=== PATIENT | male | born 2000 | race Caucasian/White ===

== ENCOUNTER 2018-04-13 00:34 | Emergency (ER) | payer OTHER ==
[2018-04-13] MEDS: KETOROLAC TROMETHAMINE 10 MG TAB PO (01:34)
== END 2018-04-13 01:37 | disposition home or self-care (01) ==
LOC: M ED 00:34
DX: S76.012A Strain of muscle, fascia and tendon of left hip, initial encounter (principal); W00.0XXA Fall on same level due to ice and snow, initial encounter; Y92.410 Unspecified street and highway as the place of occurrence of the external cause
CPT/HCPCS: 73502

== ENCOUNTER 2018-07-13 09:19 | Emergency (ER) | payer OTHER ==
[~2018-07-13] VITALS: Ht 162.6 cm; Wt 59.1 kg
[~2018-07-13 09:19] MED LIST: KETO10TAB PO
[2018-07-13 09:20] VITALS: BP 130/64
[2018-07-13] MEDS ORDERED: NAPR-50 PO (10:02)
[2018-07-13] MEDS ORDERED: VOLT1GEL15 TOP (10:03)
== END 2018-07-13 10:15 | disposition home or self-care (01) ==
LOC: M ED 09:19
DX: M76.892 Other specified enthesopathies of left lower limb, excluding foot (principal)

== ENCOUNTER 2019-05-10 08:26 | Emergency (ER) | payer OTHER ==
[~2019-05-10] VITALS: Ht 162.6 cm; Wt 58.1 kg
[~2019-05-10 08:26] MED LIST changes: +NAPR-837 PO; +VOLT1GEL15 TOP
--- NOTE | 2019-05-10 09:30 | REP ---
High-resolution scrotal sonography: History: Left testicular pain. Findings: High-resolution bilateral sonography shows no evidence of intratesticular mass lesion on either side. Epididymi are unremarkable. There is no evidence of hydrocele or hernia. Right testis measures 4.8 x 2.0-0.5 cm. Left testicular dimensions are 4.3 x 2.1 x 2.9 cm. No scrotal wall edema is appreciated. Doppler flow is present in both testes. Resistive indices are 0.63 and 0.53 on the right and left respectively. Impression: No morphologic abnormality. Doppler flow present bilaterally. Electronically Signed by Julius Mccullough MD 05/10/2019 11:05 A
[2019-05-10] MEDS ORDERED: cefTRIAXone SOD 250 MG VIAL (J0696) IM ONE (11:15)
[2019-05-10] MEDS ORDERED: LIDOCAINE 1% SDV 5 ML VIAL DILUENT ONE (11:15)
[2019-05-10] MEDS ORDERED: DOXY100C37 PO (11:27)
[2019-05-10 11:38] VITALS: BP 130/77
[2019-05-10 12:28] LABS: CHLAMYDIA DNA AMPLIFICATION NEGATIVE (NEGATIVE); GC DNA AMPLIFICATION NEGATIVE (NEGATIVE)
== END 2019-05-10 11:49 | disposition home or self-care (01) ==
LOC: M ED 08:26
DX: N45.1 Epididymitis (principal)
CPT/HCPCS: 76870; 81001; 87491; 87591; 93976; 96372; 99283; J0696

== ENCOUNTER 2020-03-01 10:57 | Day surgery (SDC) | payer OTHER ==
[~2020-03-01] VITALS: Ht 162.6 cm; Wt 63.5 kg
[~2020-03-01 10:57] MED LIST changes: +DOXY100C37 PO; +NS 1,000 ML IV ONE; +PANT40TA29 PO
--- NOTE | 2020-03-01 14:04 | ROOR ---
Patient Name: Jaylan Hernandez Procedure Date: 03/01/2020 1:49 PM Date of : 2000 Age: 19 Room: [facility] Gender: Male Note Status: Finalized Procedure: Upper Endoscopy + Biopsies Indications: Heartburn, Nausea with vomiting Providers: Shailesh Pena MD Referring MD: TANMAY LOTT MD Requesting Provider: Medicines: Monitored Anesthesia Care Complications: No immediate complications. Procedure: Pre-Anesthesia Assessment: - The heart rate, respiratory rate, oxygen saturations, blood pressure, adequacy of pulmonary ventilation, and response to care were monitored throughout the procedure. The Endoscope was introduced through the mouth, and advanced to the second part of duodenum. The upper GI endoscopy was accomplished without difficulty. The patient tolerated the procedure well. Findings: The Z-line was variable and was found 40 cm from the incisors. No other significant abnormalities were identified in a careful examination of the stomach. Biopsies were taken with a cold forceps in the gastric antrum for Helicobacter pylori testing. The exam of the duodenum was otherwise normal. Impression: - Z-line variable, 40 cm from the incisors. - Biopsies were taken with a cold forceps for Helicobacter pylori testing. - The examination was otherwise normal. Recommendation: - Patient has a contact number available for emergencies. The signs and symptoms of potential delayed complications were discussed with the patient. Return to normal activities tomorrow. Written discharge instructions were provided to the patient. - High fiber diet. - Discharge patient to home. - Follow an antireflux regimen. - Continue present medications. - Await pathology results. - Telephone GI clinic for pathology results in 1 week. - Return to referring physician. - The findings and recommendations were discussed with the patient. Shailesh Pena MD Shailesh Pena MD 03/01/2020 2:02:57 PM Electronically signed by Shailesh Pena MD Number of Addenda: 0 Note Initiated On: 03/01/2020 1:49 PM Estimated Blood Loss: Estimated blood loss: none.
[2020-03-01] MEDS ORDERED: propofoL 200 MG/20 ML VIAL As Ordered ONE (14:08)
[2020-03-01] MEDS ORDERED: LIDOCAINE 2% 100MG/5ML SDV (FOR ANES.) As Ordered ONE (14:08)
[2020-03-01 14:25] VITALS: BP 118/61
== END 2020-03-01 14:50 | disposition home or self-care (01) ==
LOC: M OPP 10:57
PROVIDERS: ATTEND Internal Medicine Gastroenterology
DX: K22.8 Other specified diseases of esophagus (principal); K29.71 Gastritis, unspecified, with bleeding; R12 Heartburn; R11.2 Nausea with vomiting, unspecified; G47.30 Sleep apnea, unspecified; Z79.899 Other long term (current) drug therapy

== ENCOUNTER 2020-09-01 07:05 | Emergency (ER) | payer OTHER ==
[~2020-09-01] VITALS: Ht 165.1 cm; Wt 68.9 kg
[~2020-09-01 07:05] MED LIST changes: -NS 1,000 ML IV ONE
[2020-09-01 08:01] LABS: APPEARANCE, URINE CLEAR (CLEAR); BACTERIA, URINE AUTO NEGATIVE (NEGATIVE); BILIRUBIN, URINE AUTO NEGATIVE (NEGATIVE); BLOOD, URINE BLOOD NEGATIVE (NEGATIVE); COLOR, URINE YELLOW (YELLOW); GLUCOSE, URINE (UA) AUTO NEGATIVE (NEGATIVE); KETONE, URINE AUTO NEGATIVE (NEGATIVE); LEUKOCYTE ESTERASE, URINE AUTO NEGATIVE (NEGATIVE); NITRITE, URINE AUTO NEGATIVE (NEGATIVE); PROTEIN, URINE AUTO NEGATIVE (NEGATIVE); RBC, URINE AUTO 2 /HPF (0-3); SQUAMOUS EPITHELIAL CELL UR AU 0 /HPF (0-6); UROBILINOGEN, URINE AUTO 0.2 mg/dL (0.0-2.0); WBC, URINE AUTO 1 /HPF (0-3)
--- NOTE | 2020-09-01 08:07 | REP ---
INDICATION: blunt trauma. COMPARISON: None. TECHNIQUE: Four views of the lumbar spine are provided. FINDINGS: Lumbar vertebral body heights are preserved. Alignment is normal. No fracture or collapse is seen. Disc spaces are maintained. Pedicles and posterior elements are intact. There is no evidence of spondylolysis or spondylolisthesis. Sacrum and SI joints are unremarkable. Psoas margins are symmetric. Visualized bowel gas pattern is normal. IMPRESSION: Negative lumbar spine radiographs. <Electronically signed by Major Mccullough > 09/01/20 0141
--- NOTE | 2020-09-01 08:08 | REP ---
INDICATION: blunt trauma. COMPARISON: None. TECHNIQUE: Three views. FINDINGS: Thoracic vertebral body heights are preserved. Alignment is normal. No fracture or collapse is seen. Pedicles and posterior elements are intact. No paravertebral soft tissue mass or swelling is seen. Swimmer's lateral view shows no additional finding. Disc spaces are maintained. IMPRESSION: Negative views of the thoracic spine. <Electronically signed by Major Mccullough > 09/01/20 0838
[2020-09-01 08:25] VITALS: BP 130/71
== END 2020-09-01 08:44 | disposition home or self-care (01) ==
LOC: M ED 07:05
DX: S20.229A Contusion of unspecified back wall of thorax, initial encounter (principal); W22.8XXA Striking against or struck by other objects, initial encounter; Y92.9 Unspecified place or not applicable; Y93.9 Activity, unspecified; Y99.1 Military activity

== ENCOUNTER 2020-09-06 22:41 | Emergency (ER) | payer OTHER ==
[~2020-09-06] VITALS: Ht 165.1 cm; Wt 66.8 kg
[2020-09-06] MEDS ORDERED: IBUP1TAB5 PO (22:50)
[2020-09-07] MEDS ORDERED: ISOVUE-370 76% 100ML VIAL As Ordered ONE (03:48)
[2020-09-07 03:52] LABS: BASO % 0.6 % (0.0-1.0); EOS # 0.1 10^3/uL (0.0-0.5); EOS % 1.4 % (0.0-3.0); HEMATOCRIT 43.2 % (42.0-52.0); HEMOGLOBIN 15.3 g/dl (13.5-17.5); LYMPH # 2.9 10^3/uL (1.5-5.0); LYMPH % 39.6 % (24.0-44.0); MEAN CORPUSCULAR HEMOGLOBIN 30.5 pg (27.0-33.0); MEAN CORPUSCULAR HGB CONC 35.4 g/dl (32.0-36.5); MEAN CORPUSCULAR VOLUME 86.2 fl (80.0-96.0); MONO # 0.8 10^3/uL (0.0-0.8); MONO % 11.4 % (2.0-8.0); NEUTROPHILS # 3.4 10^3/uL (1.5-8.5); NEUTROPHILS % 46.9 % (36.0-66.0); PLATELET COUNT, AUTOMATED 182 10^3/uL (150-450); RED BLOOD COUNT 5.01 10^6/uL (4.30-6.10); WHITE BLOOD COUNT 7.3 10^3/uL (4.0-10.0)
[2020-09-07 04:20] LABS: ALBUMIN 4.6 GM/DL (3.2-5.2); ALT/SGPT 22 U/L (12-78); BILIRUBIN,TOTAL 0.7 MG/DL (0.2-1.0); BLOOD UREA NITROGEN 12 MG/DL (7-18); CALCIUM LEVEL 9.2 MG/DL (8.5-10.1); CARBON DIOXIDE LEVEL 31 MEQ/L (21-32); CHLORIDE LEVEL 105 MEQ/L (98-107); GLOMERULAR FILTRATION RATE > 60.0 (>60); GLUCOSE, FASTING 88 MG/DL (70-100); POTASSIUM SERUM 3.9 MEQ/L (3.5-5.1); SODIUM LEVEL 140 MEQ/L (136-145); TOTAL PROTEIN 7.2 GM/DL (6.4-8.2)
--- NOTE | 2020-09-07 04:42 | REPVR ---
PROCEDURE INFORMATION: Exam: CT Abdomen And Pelvis With Contrast Exam date and time: 09/07/2020 3:44 AM Age: 20 years old Clinical indication: Other: Diarrhea; Abdominal pain; Generalized; Additional info: Diarrhea, abdominal pain, lower gi bleeding TECHNIQUE: Imaging protocol: Computed tomography of the abdomen and pelvis with contrast. Radiation optimization: All CT scans at this facility use at least one of these dose optimization techniques: automated exposure control; mA and/or kV adjustment per patient size (includes targeted exams where dose is matched to clinical indication); or iterative reconstruction. Contrast material: ISO; Contrast volume: 100 ml; Contrast route: INTRAVENOUS (IV); COMPARISON: DE Hip,AP,LAT to include Pelvis 04/13/2018 1:02 AM FINDINGS: Liver: There is a 7 mm right hepatic lobe too small to characterize hypodensity on axial image 34. Another smaller density is seen more inferiorly. Gallbladder and bile ducts: Normal. No calcified stones. No ductal dilation. Pancreas: Normal. No ductal dilation. Spleen: Normal. No splenomegaly. Adrenal glands: Normal. No mass. Kidneys and ureters: Normal. No hydronephrosis. Stomach and bowel: Unremarkable. No obstruction. No mucosal thickening. Appendix: The appendix is slightly prominent measuring 7 mm but with no obvious surrounding inflammation. Intraperitoneal space: Unremarkable. No free air. No significant fluid collection. Vasculature: Unremarkable. No abdominal aortic aneurysm. Lymph nodes: There are numerous prominent shotty mesenteric lymph nodes coupled with mesenteric haziness. Urinary bladder: The urinary bladder is under distended limiting its evaluation. Reproductive: Unremarkable as visualized. Bones/joints: Unremarkable. No acute fracture. Soft tissues: Unremarkable. IMPRESSION: 1. CT findings raising the possibility of enteritis or mesenteric adenitis. 2. Prominent appendix measuring 7 mm but without obvious wall thickening or surrounding edema. Findings are equivocal. Although this could be a normal appendix, early acute appendicitis cannot be completely excluded. Correlation with clinical history and tenderness at McBurney's point is needed. Continued close clinical follow-up is recommended. 3. Two right hepatic lobe too small to characterize hypodensities the largest measuring 7 mm.In a low-risk patient, this lesion is most likely to be benign and no further follow-up is recommended. In a high-risk patient, recommend follow-up MRI in 3-6 months (or earlier if warranted by the patient's specific clinical circumstances). Electronically signed by: Gino Motley On 09/07/2020 04:42:08 AM
[2020-09-07] MEDS ORDERED: FLAG500T PO (06:00)
[2020-09-07] MEDS ORDERED: CIPR-249 PO (06:00)
[2020-09-07 06:01] VITALS: BP 157/76
[2020-09-07] MEDS ORDERED: metroNIDAZOLE (FLAGYL) 500MG TABLET PO ONE (06:05)
[2020-09-07] MEDS ORDERED: CIPROFLOXACIN 500MG TABLET PO ONE (06:05)
== END 2020-09-07 06:16 | disposition home or self-care (01) ==
LOC: M ED 22:41
DX: K92.2 Gastrointestinal hemorrhage, unspecified (principal); L04.9 Acute lymphadenitis, unspecified
CPT/HCPCS: 74177; 80053; 85025; 99284; Q9967

== ENCOUNTER → 2020-10-11 | Outpatient (CLI) | payer OTHER ==
[~2020-10-11] MED LIST changes: +CIPR-249 PO; +E-Z-GAS II EFFERVESCENT PACKET (SODIUM BICARB./CITRIC ACID/SIMETHICONE) As Ordered ONE; +E-Z-HD 98% w/w 340GM SUSP BTL As Ordered ONE; +E-Z-PAQUE 96% w/w SUSP 176GM BTL As Ordered ONE; +FLAG500T PO; +IBUP1TAB5 PO
--- NOTE | 2020-10-11 17:44 | REP ---
INDICATION: GERD. COMPARISON: None. TECHNIQUE: The procedure was performed under the direct supervision of Dr. Dudley. The images were reviewed with Dr. Dudley. Liquid barium and gas producing crystals were given in the erect position as well as liquid barium in the prone oblique position in order to perform a double contrast upper GI examination. Additionally liquid barium was given at the end of the examination in order to perform a small bowel follow through. A combination od fluoroscopy, spot films and last image hold technology was utilized, 3.9 minutes of fluoro time was utilized for this procedure. FINDINGS: The clean up worker film shows no organomegaly or pathological masses. The intestinal gas pattern is non-specific. The oral and pharyngeal stages of deglutition are unremarkable. Esophageal transport is prompt and efficient and there is no esophagitis, stricture, mucosal ring or hiatal hernia. There is gastroesophageal reflux demonstrated to above the level of the lucius. The stomach lima are normally outlined. The rugal folds are smooth and regular. There is no gastritis neoplasm or ulcer disease. The duodenal lima are normally outlined . The mucosal folds are smooth and regular. There is no duodenitis pancreatitis peptic ulcer disease or neoplasm. The visualized portion of the proximal small bowel appears normal in course and caliber. The barium column was followed through the small bowel to the level of the terminal ileum. Small bowel transit time is approximately 50 minutes. During fluoroscopy gentle palpation shows all loops are freely movable and pliable. There are no fixed or angulated loops. The small bowel mucosal pattern is normal in course and caliber. There is no transition to suggest a partial small-bowel obstruction. Spot filming of the terminal ileum shows it to be unremarkable. IMPRESSION: There is gastroesophageal reflux demonstrated to above the level of the lucius. Otherwise, unremarkable double contrast upper GI and small bowel follow through examination. <Electronically signed by Shaheed Childress > 10/11/20 1529 <Electronically signed by Justin Dudley > 10/11/20 [id number]
== END ==
LOC: M RAD 08:53
PROVIDERS: ATTEND Surgery
DX: K21.9 Gastro-esophageal reflux disease without esophagitis (principal); K62.5 Hemorrhage of anus and rectum

== ENCOUNTER 2020-11-16 12:58 | Day surgery (SDC) | payer OTHER ==
[~2020-11-16] VITALS: Ht 165.1 cm; Wt 66.2 kg
[~2020-11-16 12:58] MED LIST changes: -DOXY100C37 PO; +DOXY1CAP62 PO; -E-Z-GAS II EFFERVESCENT PACKET (SODIUM BICARB./CITRIC ACID/SIMETHICONE) As Ordered ONE; -E-Z-HD 98% w/w 340GM SUSP BTL As Ordered ONE; -E-Z-PAQUE 96% w/w SUSP 176GM BTL As Ordered ONE; +NS 1,000 ML IV ONE
[2020-11-16] MEDS ORDERED: fentaNYL 100 MCG/2 ML INJECTION (J3010) As Ordered ONE (13:52)
[2020-11-16] MEDS ORDERED: propofoL 200 MG/20 ML VIAL As Ordered ONE ×3 (13:52→14:15)
[2020-11-16] MEDS ORDERED: LIDOCAINE 2% 100MG/5ML SDV (FOR ANES.) As Ordered ONE (13:52)
--- NOTE | 2020-11-16 14:14 | ROOR ---
Patient Name: Jaylan Hernandez Procedure Date: 11/16/2020 1:59 PM Date of : 2000 Age: 20 Room: [facility] Gender: Male Note Status: Finalized Procedure: Upper GI endoscopy Indications: Generalized abdominal pain Providers: Gama Laurent Jr, MD Referring MD: TANMAY LOTT MD Requesting Provider: Medicines: Propofol per Anesthesia Complications: No immediate complications. Procedure: Pre-Anesthesia Assessment: - Prior to the procedure, a History and Physical was performed, and patient medications and allergies were reviewed. The patient is competent. The risks and benefits of the procedure and the sedation options and risks were discussed with the patient. All questions were answered and informed consent was obtained. Patient identification and proposed procedure were verified by the physician and the nurse in the pre-procedure area and in the procedure room. Mental Status Examination: alert and oriented. Airway Examination: normal oropharyngeal airway and neck mobility. Respiratory Examination: clear to auscultation. CV Examination: normal. ASA Grade Assessment: II - A patient with mild systemic disease. After reviewing the risks and benefits, the patient was deemed in satisfactory condition to undergo the procedure. The anesthesia plan was to use moderate sedation / analgesia (conscious sedation). Immediately prior to administration of medications, the patient was re-assessed for adequacy to receive sedatives. The heart rate, respiratory rate, oxygen saturations, blood pressure, adequacy of pulmonary ventilation, and response to care were monitored throughout the procedure. The physical status of the patient was re-assessed after the procedure. The Endoscope was introduced through the mouth, and advanced to the second part of duodenum. The upper GI endoscopy was accomplished without difficulty. The patient tolerated the procedure well. Findings: LA Grade A (one or more mucosal breaks less than 5 mm, not extending between tops of 2 mucosal folds) esophagitis was found at the gastroesophageal junction. Biopsies were taken with a cold forceps for histology. The gastric body, lesser curvature of the stomach, gastric antrum, prepyloric region of the stomach and pylorus were normal. Localized moderate inflammation characterized by friability was found in the cardia. The duodenal bulb, first portion of the duodenum and second portion of the duodenum were normal. Biopsies for histology were taken with a cold forceps for evaluation of celiac disease. Impression: - LA Grade A reflux esophagitis. Biopsied. - Normal gastric body, lesser curvature of the stomach, antrum, prepyloric region of the stomach and pylorus. - Gastritis. - Normal duodenal bulb, first portion of the duodenum and second portion of the duodenum. Biopsied. Recommendation: - Discharge patient to home (ambulatory). - Return to my office as previously scheduled. Procedure Code(s): --- Professional --- 75935, Esophagogastroduodenoscopy, flexible, transoral; with biopsy, single or multiple Diagnosis Code(s): --- Professional --- K21.0, Gastro-esophageal reflux disease with esophagitis K29.70, Gastritis, unspecified, without bleeding R10.84, Generalized abdominal pain CPT copyright 2019 [employer]. All rights reserved. The codes documented in this report are preliminary and upon medical insurance coder review may be revised to meet current compliance requirements. Gama Laurent MD Gama Laurent Jr, MD 11/16/2020 2:13:51 PM Electronically signed by Gama Laurent Jr, MD Number of Addenda: 0 Note Initiated On: 11/16/2020 1:59 PM Estimated Blood Loss: Estimated blood loss: none.
--- NOTE | 2020-11-16 14:28 | ROOR ---
Patient Name: Jaylan Hernandez Procedure Date: 11/16/2020 1:59 PM Date of : 2000 Age: 20 Room: [facility] Gender: Male Note Status: Finalized Procedure: Colonoscopy Indications: Generalized abdominal pain, Clinically significant diarrhea of unexplained origin Providers: Gama Laurent Jr, MD Referring MD: TANMAY LOTT MD Requesting Provider: Medicines: Propofol per Anesthesia Complications: No immediate complications. Procedure: Pre-Anesthesia Assessment: - Prior to the procedure, a History and Physical was performed, and patient medications and allergies were reviewed. The patient is competent. The risks and benefits of the procedure and the sedation options and risks were discussed with the patient. All questions were answered and informed consent was obtained. Patient identification and proposed procedure were verified by the physician and the nurse in the pre-procedure area and in the procedure room. Mental Status Examination: alert and oriented. Airway Examination: normal oropharyngeal airway and neck mobility. Respiratory Examination: clear to auscultation. CV Examination: normal. ASA Grade Assessment: II - A patient with mild systemic disease. After reviewing the risks and benefits, the patient was deemed in satisfactory condition to undergo the procedure. The anesthesia plan was to use moderate sedation / analgesia (conscious sedation). Immediately prior to administration of medications, the patient was re-assessed for adequacy to receive sedatives. The heart rate, respiratory rate, oxygen saturations, blood pressure, adequacy of pulmonary ventilation, and response to care were monitored throughout the procedure. The physical status of the patient was re-assessed after the procedure. The Colonoscope was introduced through the anus and advanced to the cecum, identified by appendiceal orifice and ileocecal valve. The colonoscopy was performed without difficulty. The patient tolerated the procedure well. The quality of the bowel preparation was adequate. Findings: The rectum, recto-sigmoid colon, sigmoid colon, descending colon, transverse colon, ascending colon, cecum, appendiceal orifice, ileocecal valve and ileum appeared normal. Biopsies for histology were taken with a cold forceps from the cecum, ascending colon, transverse colon, descending colon and sigmoid colon for evaluation of microscopic colitis. The terminal ileum appeared normal. Biopsies were taken with a cold forceps for histology. Impression: - The rectum, recto-sigmoid colon, sigmoid colon, descending colon, transverse colon, ascending colon, cecum, appendiceal orifice, ileocecal valve and terminal ileum are normal. Biopsied. - The examined portion of the ileum was normal. Biopsied. Recommendation: - Discharge patient to home (ambulatory). - Return to my office as previously scheduled. Procedure Code(s): --- Professional --- 22679, Colonoscopy, flexible; with biopsy, single or multiple Diagnosis Code(s): --- Professional --- R10.84, Generalized abdominal pain R19.7, Diarrhea, unspecified CPT copyright 2019 [employer]. All rights reserved. The codes documented in this report are preliminary and upon shop laborer review may be revised to meet current compliance requirements. Gama Laurent MD Gama Laurent Jr, MD 11/16/2020 2:28:15 PM Electronically signed by Gama Laurent Jr, MD Number of Addenda: 0 Note Initiated On: 11/16/2020 1:59 PM Estimated Blood Loss: Estimated blood loss: none.
[2020-11-16 15:02] VITALS: BP 112/61
== END 2020-11-16 15:06 | disposition home or self-care (01) ==
LOC: M OPP 12:58
PROVIDERS: ATTEND Surgery
DX: R10.84 Generalized abdominal pain (principal); R19.7 Diarrhea, unspecified; K21.00 Gastro-esophageal reflux disease with esophagitis, without bleeding; K29.70 Gastritis, unspecified, without bleeding
CPT/HCPCS: 43239; 45380; 88305; J3010

== ENCOUNTER → 2020-12-01 | Outpatient (CLI) | payer OTHER ==
[~2020-12-01] MED LIST changes: -NS 1,000 ML IV ONE
[2020-12-04 17:08] LABS: Chitobioside Carbohydrat (ACCA 8 units (0-90); Laminaribioside Carbohyd (ALCA 15 units (0-60); Mannobioside Carbohydrat (AMCA 22 units (0-100); Saccharomyces cerevisiae IgG A 21 units (0-50)
== END ==
LOC: M LAB 07:24
PROVIDERS: ATTEND Surgery
DX: K90.0 Celiac disease (principal)